=== PATIENT | male | born 1930 | race Caucasian/White ===

== ENCOUNTER 2016-11-24 15:52 | Emergency (ER) | payer OTHER ==
[~2016-11-24] VITALS: Ht 175.2 cm; Wt 77.1 kg
[~2016-11-24 15:52] MED LIST: 'zithromax250 MG PO; ASPIRIN ADULT L81 M1 PO; ATOXIMETIN-B1 CAP PO; BP MED; Coumadin2 MG PO; KEFLEX500 MG PO; LIPITOR40 MG PO; LISINOPRIL5 MG PO; LUMIGAN 2.5 ML2.5 ML OPH; Lovenox80 MG/0.8 SC; MOTRIN600 MG PO; NORCO 325 MG-51 TAB PO; OMEPRAZOLE40 MG PO; VICODIN 5/500 505 MG PO
[2016-11-24 15:59] VITALS: BP 162/76
[2016-11-24 16:30] LABS: BASO % 0.2 % (0.0-1.0); EOS % 0.6 % (1.0-4.0); HEMATOCRIT 39.7 % (42.0-52.0); HEMOGLOBIN 13.2 g/dl (14.0-18.0); LYMPH # 1.5 10*3/uL (1.3-4.4); LYMPH % 30.1 % (27.0-41.0); MEAN CELL VOLUME 93.2 fl (80.0-94.0); MEAN CORPUSCULAR HGB CONC 33.2 g/dl (33.0-37.0); MEAN PLATELET VOLUME 9.3 fl (9.6-12.3); MONO # 0.2 10*3/uL (0.1-1.0); MONO % 4.4 % (3.0-9.0); NEUT # 3.1 10*3/uL (2.3-7.9); NEUT % 64.5 % (47.0-73.0); PLATELET COUNT AUTOMATED 185 10*3/uL (130-400); RED BLOOD COUNT 4.26 10*6/uL (4.50-5.90); RED CELL DISTRI WIDTH 12.9 % (0-14.5); WHITE BLOOD COUNT 4.8 10*3/uL (4.8-10.8)
[2016-11-24 16:45] LABS: ALBUMIN 3.4 gm/dl (3.1-4.5); ALKALINE PHOSPHATASE 87 U/L (45-117); BILIRUBIN, TOTAL 0.5 mg/dl (0.2-1.0); BUN 16 mg/dl (7-24); CARBON DIOXIDE 28 mmol/L (21-32); CHLORIDE 107 mmol/L (98-107); EST GLOM FILT AFRICAN AMERICAN > 60 ml/min; GLUCOSE 145 mg/dL (65-99); POTASSIUM 3.9 mmol/L (3.5-5.1); SGOT/AST 18 IU/L (3-35); SGPT/ALT 17 U/L (12-78); SODIUM 144 mmol/L (136-145); TOTAL PROTEIN 6.7 gm/dL (6.4-8.2)
[2016-11-24] MEDS ORDERED: DELTASONE20 M1 PO (17:12)
[2016-11-24] MEDS ORDERED: AUGMENTIN 875875 MG PO (17:12)
== END 2016-11-24 17:07 | disposition home or self-care (01) ==
LOC: ED 15:52
PROVIDERS: Physician Assistant
DX: J40 Bronchitis, not specified as acute or chronic (principal); J01.90 Acute sinusitis, unspecified; Z79.899 Other long term (current) drug therapy

== ENCOUNTER 2016-12-14 18:39 | Emergency (ER) | payer OTHER ==
[~2016-12-14] VITALS: Ht 175.2 cm; Wt 79.4 kg
[~2016-12-14 18:39] MED LIST changes: +AUGMENTIN 875875 MG PO; +DELTASONE20 M1 PO
[2016-12-14 18:44] VITALS: BP 136/79
== END 2016-12-14 19:10 | disposition home or self-care (01) ==
LOC: ED 18:39
DX: S61.411A Laceration without foreign body of right hand, initial encounter (principal); Z87.442 Personal history of urinary calculi; Z98.890 Other specified postprocedural states; Z79.899 Other long term (current) drug therapy; W19.XXXA Unspecified fall, initial encounter; Y93.89 Activity, other specified; Y92.89 Other specified places as the place of occurrence of the external cause; Y99.9 Unspecified external cause status

== ENCOUNTER 2016-12-21 15:43 | Inpatient (IN) | payer OTHER ==
[~2016-12-21] VITALS: Ht 175.2 cm; Wt 80.1 kg
[~2016-12-21 15:43] MED LIST changes: -B12,B-12,B 12500 MC1 PO; -BACTRIM DS 8001 TA1 PO
[2016-12-21 15:47] VITALS: BP 177/100
[2016-12-21 16:43] LABS: BASO % 0.2 % (0.0-1.0); EOS % 0.8 % (1.0-4.0); HEMATOCRIT 40.4 % (42.0-52.0); HEMOGLOBIN 13.5 g/dl (14.0-18.0); LYMPH # 0.9 10*3/uL (1.3-4.4); LYMPH % 17.9 % (27.0-41.0); MEAN CORPUSCULAR HGB 31.4 pg (27.0-31.0); MEAN CORPUSCULAR HGB CONC 33.4 g/dl (33.0-37.0); MEAN PLATELET VOLUME 9.4 fl (9.6-12.3); MONO # 0.4 10*3/uL (0.1-1.0); NEUT # 3.7 10*3/uL (2.3-7.9); NEUT % 72.7 % (47.0-73.0); PLATELET COUNT AUTOMATED 247 10*3/uL (130-400); RED CELL DISTRI WIDTH 13.2 % (0-14.5); WHITE BLOOD COUNT 5.1 10*3/uL (4.8-10.8)
[2016-12-21 16:58] LABS: ALBUMIN 3.3 gm/dl (3.1-4.5); ALKALINE PHOSPHATASE 96 U/L (45-117); BILIRUBIN, TOTAL 0.4 mg/dl (0.2-1.0); BUN 16 mg/dl (7-24); CARBON DIOXIDE 27 mmol/L (21-32); CHLORIDE 107 mmol/L (98-107); EST GLOM FILT AFRICAN AMERICAN > 60 ml/min; GLUCOSE 111 mg/dL (65-99); SGOT/AST 13 IU/L (3-35); SGPT/ALT 15 U/L (12-78); SODIUM 142 mmol/L (136-145); TOTAL PROTEIN 6.8 gm/dL (6.4-8.2)
[2016-12-21 17:25] VITALS: BP 158/83
[2016-12-21 20:00] VITALS: BP 147/84
[2016-12-22] VITALS: BP 135/72
[2016-12-22 04:00] VITALS: BP 150/77
[2016-12-22 07:06] LABS: BASO % 0.4 % (0.0-1.0); EOS # 0.1 10*3/uL (0.0-0.4); EOS % 1.8 % (1.0-4.0); HEMATOCRIT 37.7 % (42.0-52.0); HEMOGLOBIN 12.6 g/dl (14.0-18.0); LYMPH # 1.4 10*3/uL (1.3-4.4); LYMPH % 27.7 % (27.0-41.0); MEAN CELL VOLUME 94.3 fl (80.0-94.0); MEAN CORPUSCULAR HGB 31.5 pg (27.0-31.0); MEAN CORPUSCULAR HGB CONC 33.4 g/dl (33.0-37.0); MEAN PLATELET VOLUME 9.4 fl (9.6-12.3); MONO # 0.5 10*3/uL (0.1-1.0); MONO % 9.4 % (3.0-9.0); NEUT % 60.5 % (47.0-73.0); PLATELET COUNT AUTOMATED 225 10*3/uL (130-400); RED CELL DISTRI WIDTH 13.3 % (0-14.5); WHITE BLOOD COUNT 4.9 10*3/uL (4.8-10.8)
[2016-12-22 07:15] LABS: ALBUMIN 2.9 gm/dl (3.1-4.5); ALKALINE PHOSPHATASE 84 U/L (45-117); BILIRUBIN, TOTAL 0.5 mg/dl (0.2-1.0); BUN 18 mg/dl (7-24); CARBON DIOXIDE 28 mmol/L (21-32); CHLORIDE 107 mmol/L (98-107); CHOLESTEROL 128 mg/dL (<200); EST GLOM FILT AFRICAN AMERICAN > 60 ml/min; GLUCOSE 95 mg/dL (65-99); HDL CHOLESTEROL 49 mg/dl (40-60); LDL CHOLESTEROL 62 mg/dL (9-159); MAGNESIUM 2.2 mg/dL (1.5-2.1); PHOSPHOROUS 3.4 mg/dL (2.5-4.9); POTASSIUM 4.3 mmol/L (3.5-5.1); SGOT/AST 12 IU/L (3-35); SGPT/ALT 14 U/L (12-78); SODIUM 144 mmol/L (136-145); TOTAL PROTEIN 6.2 gm/dL (6.4-8.2); TRIGLYCERIDES 86 mg/dl (<150); VLDL CHOLESTEROL 17 mg/dL (6-40)
[2016-12-22 07:59] LABS: HEMOGLOBIN A1c 6.4 % (4.8-5.6)
[2016-12-22 08:00] VITALS: BP 166/76
[2016-12-22 08:00] LABS: FOLIC ACID 15.16 ng/mL (>5.38)
[2016-12-22 12:00] VITALS: BP 151/81
[2016-12-22 16:00] VITALS: BP 145/70
[2016-12-22 20:00] VITALS: BP 128/68
[2016-12-23] VITALS: BP 168/75
[2016-12-23 08:00] VITALS: BP 152/82
[2016-12-23 12:00] VITALS: BP 136/64
[2016-12-23 16:00] VITALS: BP 159/79
[2016-12-23 20:00] VITALS: BP 154/75
[2016-12-24] VITALS: BP 121/59
[2016-12-24] MEDS ORDERED: B12,B-12,B 12500 MC1 PO (07:47)
[2016-12-24] MEDS ORDERED: BACTRIM DS 8001 TA1 PO (07:48)
[2016-12-24 08:00] VITALS: BP 136/76
== END 2016-12-24 11:24 | disposition home or self-care (01) | DRG 872 ==
LOC: ED 15:43 → EDHOLD 17:01 → 5E 17:01
PROVIDERS: Hospitalist; Physician Assistant
PROC: 2W3EX1Z Immobilization of Right Hand using Splint (ICD-10-PCS; principal; 2016-12-22)
DX: A41.9 Sepsis, unspecified organism (principal); E44.0 Moderate protein-calorie malnutrition; L03.113 Cellulitis of right upper limb; D64.9 Anemia, unspecified; E83.41 Hypermagnesemia; Z66 Do not resuscitate; Z51.5 Encounter for palliative care; D72.810 Lymphocytopenia; E78.2 Mixed hyperlipidemia; E53.8 Deficiency of other specified B group vitamins; M65.9 Synovitis and tenosynovitis, unspecified; Z90.49 Acquired absence of other specified parts of digestive tract; Z82.3 Family history of stroke; Z79.899 Other long term (current) drug therapy

== ENCOUNTER → 2016-12-21 | Outpatient (CLI) | payer OTHER ==
[~2016-12-21] MED LIST changes: +B12,B-12,B 12500 MC1 PO; +BACTRIM DS 8001 TA1 PO
--- NOTE | ~2016-12-21 | WRIGHTHP ---
[place], [place] PATIENT HISTORY AND PHYSICAL EXAM [id number]IT #: [id number] ROOM: DOCTOR: ALEXANDRA ZARATE M.D. BIRTHDATE: [birth year] DOS: 12/21/2016 ADDENDUM I just wanted to add the measurements of this wound. Like I said, it was located on the dorsum of the hand, it is a crescent-shaped open wound, it is measuring approximately 5 x 4 x 0.1. ALEXANDRA ZARATE MD CM:HISPHYS:PATIENT HISTORY AND PHYSICAL EXAMINATION [id number] ALEXANDRA ZARATE M.D. 12/22/16 0232 interface
--- NOTE | ~2016-12-21 | WRIGHTHP ---
[place], [place] PATIENT HISTORY AND PHYSICAL EXAM NAME: KAM RAYA JR [facility] #: [id number] UNIT #: [id number] ROOM: DOCTOR: ELLIOT CorreaALEXANDRA BIRTHDATE: [birth year] DOS: 12/21/2016 NEW PATIENT EVALUATION CHIEF COMPLAINT: Open wound of the right hand. HISTORY OF PRESENT ILLNESS: This is an 86-year-old male who was referred to us by his primary care physician for an open skin tear of the right dorsum of the hand. Apparently, he injured his hand on 12/14/2016 when a metal sign fell cutting his hand. He was seen at [facility] and was treated for a skin tear. He had Steri-Strips applied. Eventually, the Steri-Strips fell off on their own. The patient was seen by the primary care physician today and there was some concern that there might be infection. Apparently, in the wound, there was some slight odor. A bandage had been covering the wound and there was swelling noted and he had difficulty moving his fingers. Therefore, he was sent to us for further management. PAST MEDICAL HISTORY: Significant for measles, mumps, chickenpox, whooping cough, pneumonia and hypertension as well as pulmonary embolus and hyperlipidemia. PAST SURGICAL HISTORY: Appendectomy, broken leg in 1970, a kidney stone, cataract of the right eye and laser treatment of the right eye. FAMILY HISTORY: Significant for heart disease in his father. Mother with hypertension and stroke. Some of his siblings are alive. He had one son who had a kidney removed for some sort of kidney problem. SOCIAL HISTORY: He is a former smoker. He quit 45 years ago. He is . He comes in with his . He rarely drinks alcohol, does not use drugs. ALLERGIES: No known drug allergies. CURRENT MEDICATIONS: Atorvastatin. REVIEW OF SYSTEMS: Other than some pain and difficulty closing his hand, he denies any fevers, chills, nausea, vomiting, abdominal pains, diarrhea. No chest pains or shortness of breath. PHYSICAL EXAMINATION: VITAL SIGNS: Temperature 98.4, pulse of 102, respirations 18, blood pressure is 142/84. GENERAL: This is an elderly male who appears much younger than his stated age. He is in no acute distress, pleasant and cooperative to examination. HEENT: Extraocular movements are intact. Sclerae are anicteric. Oropharynx is clear. NECK: There is no JVD. LUNGS: Clear to auscultation. CARDIOVASCULAR: S1, S2, regular rate and rhythm. He is tachycardic; however. I do not appreciate a murmur. [place], [place] PATIENT HISTORY AND PHYSICAL EXAM NAME: KAM RAYA JR UNIT #: [id number] ROOM: DOCTOR: ALEXANDRA ZARATE M.D. BIRTHDATE: [birth year] ABDOMEN: Soft and nontender. EXTREMITIES: He has trace edema bilaterally, no calf tenderness. NEUROLOGIC: He is alert and appropriate. Nonfocal. In comparison to the left hand, his right hand is markedly swollen. The joints are swollen. The entire dorsum of the hands are swollen. He has difficulty even closing his fingers, it is at least 3 times the size of his left hand, perhaps more. There is some erythema as well. There is a crescent-shaped open wound with exposed subcutaneous tissue that looks fairly clean. The wound looks clean itself. There is no visible necrotic tissue and there is no undermining. I do not appreciate an odor at this time. It is tender to touch and at least moderately tender even along the joint lines. Due to the presence of what appears to be severe cellulitis, I am concerned with the severity of it. The swelling is quite marked and he is slightly tachycardic as well, it may be zuniga to have him evaluated in the ER for possible admission. I think he would meet criteria. In addition, he probably should have an x-ray done of his hand. Apparently, the option to do an x-ray in the beginning was mentioned, however, he declined to get that. In the beginning, he did not feel that there was a fracture. In the meantime, also warm compresses and arm elevation might help. ALEXANDRA ZARATE MD CM:HISPHYS:PATIENT HISTORY AND PHYSICAL EXAMINATION [id number] ALEXANDRA ZARATE M.D. 12/21/16 1639 interface
== END ==
LOC: WOUNDCARE 14:47
DX: S61.411D Laceration without foreign body of right hand, subsequent encounter (principal); L03.113 Cellulitis of right upper limb; I10 Essential (primary) hypertension; I26.99 Other pulmonary embolism without acute cor pulmonale; E78.5 Hyperlipidemia, unspecified; M79.89 Other specified soft tissue disorders; Z87.01 Personal history of pneumonia (recurrent); Z87.891 Personal history of nicotine dependence; Z72.89 Other problems related to lifestyle; X58.XXXD Exposure to other specified factors, subsequent encounter

== ENCOUNTER → 2016-12-28 | Outpatient (CLI) | payer OTHER ==
[~2016-12-28] MED LIST changes: +B12,B-12,B 12500 MC1 PO; +BACTRIM DS 8001 TA1 PO
== END ==
LOC: WOUNDCARE 02:05
DX: S60.511D Abrasion of right hand, subsequent encounter (principal); L03.113 Cellulitis of right upper limb; W20.8XXD Other cause of strike by thrown, projected or falling object, subsequent encounter

== ENCOUNTER → 2017-01-04 | Outpatient (CLI) | payer OTHER | LOC: WOUNDCARE 02:14 | DX: S61.401D Unspecified open wound of right hand, subsequent encounter (principal); L03.113 Cellulitis of right upper limb; X58.XXXD Exposure to other specified factors, subsequent encounter ==

== ENCOUNTER → 2017-01-11 | Outpatient (CLI) | payer OTHER | LOC: WOUNDCARE 03:39 | DX: S61.401D Unspecified open wound of right hand, subsequent encounter (principal); X58.XXXD Exposure to other specified factors, subsequent encounter ==

== ENCOUNTER 2017-10-15 08:29 | Emergency (ER) | payer OTHER ==
[~2017-10-15] VITALS: Ht 175.2 cm; Wt 81.6 kg
[2017-10-15 08:34] VITALS: BP 141/81
== END 2017-10-15 09:49 | disposition home or self-care (01) ==
LOC: ED 08:29
DX: S49.92XA Unspecified injury of left shoulder and upper arm, initial encounter (principal); E78.5 Hyperlipidemia, unspecified; Z87.442 Personal history of urinary calculi; Z90.49 Acquired absence of other specified parts of digestive tract; Z79.899 Other long term (current) drug therapy; W00.0XXA Fall on same level due to ice and snow, initial encounter; Y93.89 Activity, other specified; Y92.89 Other specified places as the place of occurrence of the external cause; Y99.9 Unspecified external cause status

== ENCOUNTER 2018-09-16 13:06 | Inpatient (IN) | payer OTHER ==
[~2018-09-16] VITALS: Ht 175.3 cm; Wt 79.2 kg
--- NOTE | ~2018-09-16 | EKG ---
[place], [place] ELECTROCARDIOGRAM REPORT NAME: KAM RAYA JR UNIT #: [id number] ROOM: 523 DOCTOR: DIONICIO DRAFT REPORT BIRTHDATE: [birth year] [facility] Test Date: 2018-09-16 Test Time: 14:03:19 Pat Name: KAM RAYA Department: Room: 523 Gender: M [employer] Systems Director: Belinda Cisneros : 1930 Requested By: ROE RUBIO Order Number: [id number] Reading MD: Mk Arnold Measurements Intervals [place] Rate: 89 P: 25 CA: 163 QRS: -12 QRSD: 83 T: 28 QT: 364 QTc: 443 Interpretive Statements Sinus rhythm No previous ECG available for comparison Electronically Signed On 09-18-2018 11:01:45 PDT by Mk Arnold CM:EKGRPT:ELECTROCARDIOGRAM REPORT [id number] [place] [place] DRAFT REPORT ROE RUBIO DO
[2018-09-16 13:07] VITALS: BP 158/77
[2018-09-16 13:55] LABS: BASO % 0.2 % (0.0-1.0); EOS % 0.8 % (1.0-4.0); HEMATOCRIT 43.4 % (42.0-52.0); HEMOGLOBIN 14.4 g/dl (14.0-18.0); LYMPH # 1.4 10*3/uL (1.3-4.4); LYMPH % 29.3 % (27.0-41.0); MEAN CELL VOLUME 95.4 fl (80.0-94.0); MEAN CORPUSCULAR HGB 31.6 pg (27.0-31.0); MEAN CORPUSCULAR HGB CONC 33.2 g/dl (33.0-37.0); MEAN PLATELET VOLUME 9.5 fl (9.6-12.3); MONO # 0.5 10*3/uL (0.1-1.0); MONO % 10.1 % (3.0-9.0); NEUT # 2.8 10*3/uL (2.3-7.9); NEUT % 59.4 % (47.0-73.0); PLATELET COUNT AUTOMATED 196 10*3/uL (130-400); RED BLOOD COUNT 4.55 10*6/uL (4.50-5.90); RED CELL DISTRI WIDTH 13.1 % (0-14.5); WHITE BLOOD COUNT 4.8 10*3/uL (4.8-10.8)
[2018-09-16 14:16] LABS: ACT PARTIAL THROMBO TIME 25.1 SECONDS (20.8-31.5); ALBUMIN 3.3 gm/dl (3.1-4.5); ALKALINE PHOSPHATASE 84 U/L (45-117); BUN 17 mg/dl (7-24); CHLORIDE 108 mmol/L (98-107); CREATININE 0.89 mg/dL (0.70-1.30); INTERNATIONAL NORM RATIO 0.9 (2.0-3.5); LIPASE 71 U/L (73-393); POTASSIUM 4.1 mmol/L (3.5-5.1); SGOT/AST 13 IU/L (3-35); SGPT/ALT 18 U/L (12-78); SODIUM 142 mmol/L (136-145); TOTAL PROTEIN 6.4 gm/dL (6.4-8.2)
[2018-09-16 14:17] LABS: TROPONIN I < 0.015 ng/ml (<0.045)
[2018-09-16 14:32] LABS: BILIRUBIN NEGATIVE (NEGATIVE); BLOOD NEGATIVE (NEGATIVE); CLARITY CLEAR (CLEAR); COLOR YELLOW (YELLOW); GLUCOSE NEGATIVE (NEGATIVE); KETONE NEGATIVE (NEGATIVE); LEUKO ESTERASE NEGATIVE (NEGATIVE); NITRITE NEGATIVE (NEGATIVE); PH 5.5 (5.0-9.0); SPECIFIC GRAVITY >= 1.030 (1.005-1.030); UROBILINOGEN 0.2 E.U./dl (0.2-1.0)
[2018-09-16 14:50] LABS: BACTERIA 1+; CALCIUM OXALATE CRYSTALS 1+; HYALINE CAST 0-2; MUCOUS 1+; WBC 0-2 wbc/hpf (0-5)
[2018-09-16 16:35] VITALS: BP 134/80
[2018-09-16 20:00] VITALS: BP 151/58
[2018-09-17] VITALS: BP 137/60
[2018-09-17 06:18] LABS: BASO % 0.2 % (0.0-1.0); EOS # 0.1 10*3/uL (0.0-0.4); EOS % 1.3 % (1.0-4.0); HEMATOCRIT 41.2 % (42.0-52.0); HEMOGLOBIN 13.5 g/dl (14.0-18.0); LYMPH # 1.5 10*3/uL (1.3-4.4); LYMPH % 34.1 % (27.0-41.0); MEAN CELL VOLUME 95.6 fl (80.0-94.0); MEAN CORPUSCULAR HGB 31.3 pg (27.0-31.0); MEAN CORPUSCULAR HGB CONC 32.8 g/dl (33.0-37.0); MEAN PLATELET VOLUME 9.4 fl (9.6-12.3); MONO # 0.4 10*3/uL (0.1-1.0); MONO % 9.7 % (3.0-9.0); NEUT # 2.5 10*3/uL (2.3-7.9); NEUT % 54.5 % (47.0-73.0); PLATELET COUNT AUTOMATED 179 10*3/uL (130-400); RED BLOOD COUNT 4.31 10*6/uL (4.50-5.90); WHITE BLOOD COUNT 4.5 10*3/uL (4.8-10.8)
[2018-09-17 06:51] LABS: ALBUMIN 2.9 gm/dl (3.1-4.5); ALKALINE PHOSPHATASE 73 U/L (45-117); BUN 15 mg/dl (7-24); CHLORIDE 111 mmol/L (98-107); CREATININE 0.81 mg/dL (0.70-1.30); PHOSPHOROUS 3.4 mg/dL (2.5-4.9); POTASSIUM 3.8 mmol/L (3.5-5.1); SGOT/AST 13 IU/L (3-35); SGPT/ALT 18 U/L (12-78); SODIUM 144 mmol/L (136-145); TOTAL PROTEIN 5.9 gm/dL (6.4-8.2)
[2018-09-17 07:41] LABS: VITAMIN D, 25-HYDROXY 53.8 ng/mL (30-100)
[2018-09-17 12:00] VITALS: BP 132/76
[2018-09-17 16:00] VITALS: BP 147/68
[2018-09-17 20:00] VITALS: BP 165/73
[2018-09-18] VITALS: BP 152/72
[2018-09-18 06:54] LABS: BASO % 0.2 % (0.0-1.0); EOS # 0.1 10*3/uL (0.0-0.4); EOS % 2.4 % (1.0-4.0); HEMATOCRIT 40.7 % (42.0-52.0); HEMOGLOBIN 13.4 g/dl (14.0-18.0); LYMPH # 1.5 10*3/uL (1.3-4.4); LYMPH % 31.5 % (27.0-41.0); MEAN CELL VOLUME 95.5 fl (80.0-94.0); MEAN CORPUSCULAR HGB 31.5 pg (27.0-31.0); MEAN CORPUSCULAR HGB CONC 32.9 g/dl (33.0-37.0); MEAN PLATELET VOLUME 9.3 fl (9.6-12.3); MONO # 0.5 10*3/uL (0.1-1.0); MONO % 9.7 % (3.0-9.0); NEUT # 2.6 10*3/uL (2.3-7.9); PLATELET COUNT AUTOMATED 186 10*3/uL (130-400); RED BLOOD COUNT 4.26 10*6/uL (4.50-5.90); RED CELL DISTRI WIDTH 13.2 % (0-14.5); WHITE BLOOD COUNT 4.6 10*3/uL (4.8-10.8)
[2018-09-18 07:15] LABS: BUN 17 mg/dl (7-24); CHLORIDE 111 mmol/L (98-107); CREATININE 0.93 mg/dL (0.70-1.30); SODIUM 146 mmol/L (136-145)
[2018-09-18 12:00] VITALS: BP 142/72
[2018-09-18 16:00] VITALS: BP 157/68
[2018-09-18 20:00] VITALS: BP 153/78
[2018-09-19] VITALS: BP 148/85
[2018-09-19 06:50] LABS: BASO % 0.4 % (0.0-1.0); EOS # 0.1 10*3/uL (0.0-0.4); EOS % 1.9 % (1.0-4.0); HEMATOCRIT 44.2 % (42.0-52.0); HEMOGLOBIN 14.6 g/dl (14.0-18.0); LYMPH # 1.8 10*3/uL (1.3-4.4); LYMPH % 37.9 % (27.0-41.0); MEAN CELL VOLUME 95.1 fl (80.0-94.0); MEAN CORPUSCULAR HGB 31.4 pg (27.0-31.0); MEAN PLATELET VOLUME 9.7 fl (9.6-12.3); MONO # 0.4 10*3/uL (0.1-1.0); MONO % 9.2 % (3.0-9.0); NEUT # 2.4 10*3/uL (2.3-7.9); NEUT % 50.4 % (47.0-73.0); PLATELET COUNT AUTOMATED 218 10*3/uL (130-400); RED BLOOD COUNT 4.65 10*6/uL (4.50-5.90); RED CELL DISTRI WIDTH 13.1 % (0-14.5); WHITE BLOOD COUNT 4.8 10*3/uL (4.8-10.8)
[2018-09-19 07:15] LABS: BUN 17 mg/dl (7-24); CHLORIDE 108 mmol/L (98-107); SODIUM 145 mmol/L (136-145)
[2018-09-19 08:00] VITALS: BP 128/70
[2018-09-19 12:00] VITALS: BP 154/74
[2018-09-19 16:00] VITALS: BP 115/61
[2018-09-19] MEDS ORDERED: MECLIZINE HCL25 M2 PO (17:11)
== END 2018-09-19 17:30 | disposition home or self-care (01) | DRG 641 ==
LOC: ED 13:06 → 5E 14:55 → EDHOLD 14:55 → 5E 16:03
PROVIDERS: Emergency Medicine; Internal Medicine; Student in an Organized Health Care Education/Training Program; ADMIT Internal Medicine
DX: E86.0 Dehydration (principal); E44.0 Moderate protein-calorie malnutrition; R42 Dizziness and giddiness; E83.41 Hypermagnesemia; E53.8 Deficiency of other specified B group vitamins; E78.5 Hyperlipidemia, unspecified; Z96.1 Presence of intraocular lens; R73.9 Hyperglycemia, unspecified; D72.89 Other specified disorders of white blood cells; Z90.49 Acquired absence of other specified parts of digestive tract; Z98.49 Cataract extraction status, unspecified eye; Z79.899 Other long term (current) drug therapy; Z68.25 Body mass index [BMI] 25.0-25.9, adult